=== PATIENT | female | born 1985 | race Caucasian/White ===

== ENCOUNTER 2016-02-29 04:04 | Inpatient (IN) | payer OTHER ==
[~2016-02-29] VITALS: Ht 170.2 cm; Wt 91.4 kg
[2016-02-29] MEDS ORDERED: PRENTAB26 PO (04:33)
[2016-02-29] MEDS ORDERED: LACTATED RINGER'S 1000ML 1,000 ML IV PRN (04:34)
[2016-02-29] MEDS ORDERED: LACTATED RINGER'S 1000ML 1,000 ML IV SCH (04:34)
[2016-02-29 04:35] VITALS: Ht 170.2 cm; Wt 91.4 kg
[2016-02-29 05:01] LABS: HEMATOCRIT 36.6 % (37-47); MEAN CELL VOLUME 82.8 fL (80-100); MEAN CORPUSCULAR HEMOGLOBIN 28.3 pg (25-34); MEAN CORPUSCULAR HGB CONC 34.2 g/dl (32-36); MEAN PLATELET VOLUME 9.1 fL (7.4-10.4); PLATELET COUNT 272 K/uL (130-400); RED BLOOD COUNT 4.42 M/uL (4.2-5.4); WHITE BLOOD COUNT 15.43 K/uL (4.8-10.8)
--- NOTE | 2016-02-29 07:00 | Medical Student: [facility] ---
Med Student History & Physical Date of Service Feb 29, 2016. Chief Complaint LABOR History of Present Illness Source: patient This is a 30 year old female with an JOANA of 02/26/16 who presents at 40 weeks and 3 days for a labor check. Upon last check, she was 4-5 cm dilated, 90 % effaced, and -2 station. She denies any vaginal leakage of fluid or blood and her water has not broken. She has been experiencing intermittent contractions becoming closer in frequency. She was seen in clinic yesterday where her NST was reactive. Strip shows a FHR of 125, moderate variability, accelerations present. No decelerations noted at this time. She reports good movement. This patient has had an uncomplicated course. She has been followed for a right breast lump which has shrunk since initial presentation. She has received her TDAP vaccine and flu vaccine. She has attended all visits and takes vitamins. Labs Blood type AB+ GBS negative. Rubella immune. VDRL nonreactive. HBsAg negative. HIV negative. Gonorrhea negative. Chlamydia negative. Declined Quad testing, genetic testing. Glucola negative x 2 OB History 2003- , 10 lbs, baby put up for adoption. 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 HPV negative. Past Medical History No significant past medical history. Denies history of HTN, diabetes, high cholesterol. Past Surgical History [place] teeth surgery. Family History FHx of SLE. Spouse healthy. 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 Lives at home with and dog. Smoking Status: Never Smoker Smokeless Tobacco Use: No Alcohol Use: none Drug Use: none Marital Status: Housing status: lives with significant other Occupational Status: employed Allergies Coded Allergies: No Known Allergies (Unverified , 02/29/16) Home Medications Multivit/Min/Iron/Fol Ac/Pren ( Vitamin), 1 TAB PO DAILY Physical Exam Vital Signs: BP 138/90 Pulse 116 Hgb 12.5 General Appearance: WD/WN, no apparent distress Head: normocephalic Eyes: normal inspection ENT: normal ENT inspection Neck: supple Respiratory/Chest: chest non-tender Cardiovascular: regular rate, rhythm Genitourinary - Female: external genitalia normal Back: normal inspection Extremities: normal inspection Skin: normal color At last exam per Dr. Nagel patient was 9.5 cm dilated, 100% effaced, 0 station. Monitoring External Monitor: Category 1 strip with FHR 125, moderate variability, accelerations present. No decelerations noted. Tocodynamometer: Contractions q2-3 minutes. Laboratory Results 02/29/16 04:50 Test 02/29/16 04:50 Red Blood Count 4.42 M/uL (4.2-5.4) Mean Corpuscular Volume 82.8 fL (80-100) Mean Corpuscular Hemoglobin 28.3 pg (25-34) Mean Corpuscular Hemoglobin Concent 34.2 g/dl (32-36) RDW Standard Deviation 40.6 fL (36.4-46.3) RDW Coefficient of Variation 13.5 % (11.5-14.5) Mean Platelet Volume 9.1 fL (7.4-10.4) Assessment and Plan This is a 30 y/o female who presents in active labor. Plan: Admit to L&D Normal routine care. Continue to monitor tocodynamics and FHR. Monitor BP.
[2016-02-29] MEDS ORDERED: OXYTOCIN 30 UNITS/500ML NSS IV ONE (07:25)
--- NOTE | 2016-02-29 08:56 | Medical Student: [facility] ---
Medical Student Delivery Note DELIVERY NOTE: (Med Student: Delivery Note) DELIVERY DATE: 02/29/16 PROCEDURE: Spontaneous vaginal delivery. SURGEON: Dr. Nagel ANESTHESIA: None ESTIMATED BLOOD LOSS: 150 cc DESCRIPTION: The patient is a 30 year-old JOANA of 02/26/16 who presented in labor at 0400 this morning, at which point she was admitted. Amniotomy occured at 0720. Upon examination she was 10 cm dilated, 100% effaced, and 0 station. At this point she began to push. She pushed for approximately 70 minutes to deliver a viable male . FHR remained category 1 for beginning and progressed to category 2 with variable decelerations near last thirty minutes. The patient was given oxygen at 0800. The head was delivered with one nuchal cord, which was reduced, and the rest of the delivered without difficulty and was placed on mother's abdomen for further attention and drying. There was vigorous crying after stimulation and the infant was moving all four limbs. The cord was doubly clamped and cut by father. Cord blood samples and cord gas obtained. The placenta was delivered spontaneously intact with a 3-vessel cord. Bleeding was controlled with fundal massage and dilute IV oxytocin. Inspection of the perineum showed no lacerations or abrasions requiring repair. The perineum, cervix and vagina were examined and were free of any lacerations requiring repair. Estimated blood loss was 150cc. Sponge and needle count was correct. Mother and infant doing well after delivery. Apgars were 8 and 10 respectively. This patient is blood type AB+ and does not require Rhogam. This patient was GBS -.
[2016-02-29] MEDS ORDERED: OXYTOCIN 30 UNITS/500ML NSS IV PRN (09:15)
[2016-02-29] MEDS ORDERED: BENZOCAINE 20% AER SPR 82.5 GM CAN EXT PRN (09:15)
[2016-02-29] MEDS ORDERED: ACETAMINOPHEN/CODEINE 300/30MG TAB PO PRN ×2 (09:15)
[2016-02-29] MEDS ORDERED: SUPERCREAM 0.870 % 15GM JAR EXT PRN (09:15)
[2016-02-29] MEDS ORDERED: HYDROCORTISONE ACETATE 25 MG SUPP PR PRN (09:15)
[2016-02-29] MEDS ORDERED: LANOLIN OINT EXT PRN ×2 (09:15)
--- NOTE | 2016-02-29 09:45 | DELIVERY SUMMARY ---
DATE OF OPERATION: 02/29/2016 DATE OF DELIVERY: 02/29/2016. DELIVERY SURGEON: Dr. Nagel. PRE-DELIVERY DIAGNOSES: 1. 30-year-old G2,P1-0-0-1 at 40 weeks 3 days. 2. Spontaneous labor. 3. Breast lump - resolved. POST-DELIVERY DIAGNOSES: Same. PROCEDURE: Spontaneous vaginal delivery. ANESTHESIA: None. ESTIMATED BLOOD LOSS: 300 mL. FINDINGS: Viable male with Apgars 8 and 9, weight pending. DESCRIPTION OF DELIVERY: The patient progressed to complete without anesthesia and spontaneously delivered a viable male vaginally over an intact perineum. The head delivered from the left occiput anterior position, nuchal cord was noted and easily reduced. The anterior shoulder was then delivered followed by the posterior shoulder followed by the body. The baby was warmed and dried and a spontaneous cry was heard. The baby was placed on the mother's abdomen. Delayed cord clamping was performed. The cord was then doubly clamped and cut. A segment was retained for cord gases. Cord blood was obtained. The placenta was then delivered spontaneously intact with a 3-vessel cord. The uterus and vagina were cleared of all clots and debris. The vagina and perineum were inspected and no lacerations were noted. The uterus became firm with administration of Pitocin. Mother and baby tolerated the delivery well and recovered in the room. Sponge and instrument counts were correct at the conclusion of the delivery. HISTORY OF PRESENT ILLNESS: The patient is a 30-year-old G2-P1-0-0-1 who presented with regular contractions at 40 weeks 3 days with positive movement. No vaginal bleeding, no gush of fluid. Review of systems otherwise unremarkable. PAST MEDICAL HISTORY: Negative except history of right breast lump has now resolved. PAST SURGICAL HISTORY: [place] teeth. PAST OBSTETRICAL HISTORY: Vaginal delivery of a female in 2003 weighing 10 pounds with use of an epidural. That child was given up for adoption. SOCIAL HISTORY: Denies tobacco, alcohol and drug use. Lives with spouse and her dog. FAMILY HISTORY: Unremarkable. MEDICATIONS: vitamins. ALLERGIES: No known drug allergies. PHYSICAL EXAMINATION: VITAL SIGNS: Stable and afebrile. GENERAL: Awake, alert and oriented x3 in no acute distress. CARDIOVASCULAR EXAMINATION: Regular rate and rhythm, S1, S2. No murmurs, gallops or rubs. LUNGS: Clear to auscultation bilaterally. ABDOMEN: Soft, nontender to palpation, gravid. No signs or symptoms of chorioamnionitis or placental abruption. EXTREMITIES: No edema, no calf tenderness. VAGINAL EXAMINATION ON ADMISSION: 4-5 cm per RN and progressed to complete throughout stay in labor and delivery. heart tracing category 1 with regular contractions every 2 minutes. LABS: Blood type AB positive, rubella immune, GBS negative. ASSESSMENT AND PLAN: 1. 30-year-old G2,P1-0-0-1 at 40 weeks 3 days. 2. Spontaneous labor. PLAN: Admit to labor and delivery and anticipate vaginal delivery. I attest to the content of the Intraoperative Record and any orders documented therein. Any exceptions are noted below. RICCID
[2016-02-29 11:45] VITALS: BP 107/71; PULSE 88; TEMP 36.6
[2016-02-29 16:05] VITALS: BP 120/79; PULSE 68; TEMP 36.5
[2016-02-29] MEDS: IBUPROFEN 600 MG TAB PO PRN (18:34)
[2016-02-29] MEDS: DOCUSATE SODIUM 100 MG CAP PO SCH (19:57)
[2016-02-29 20:50] VITALS: BP 119/76; PULSE 74; TEMP 36.6
[2016-02-29 23:30] VITALS: BP 109/67; PULSE 61; TEMP 36.6
[2016-03-01 03:30] VITALS: BP 125/77; PULSE 67; TEMP 36.3
--- NOTE | 2016-03-01 06:40 | Progress Note ---
Subjective Mar 01, 2016. Subjective conversation w/ patient, physical exam Ambulation: ambulating normally Voiding: no voiding problems Passing Gas: No Diet Tolerance: Regular Diet Lochia: Small Feeding Type: Breast Feeding Pain: No pain reported this morning Review of Systems Constitutional: No chills, No fever Respiratory: No cough, No shortness of breath Cardiac: No chest pain Breast: No breast pain Abdomen: No nausea, No pain, No vomiting Female : No dysuria Objective Vital Signs Date Time Temp Pulse Resp B/P Pulse Ox O2 Delivery O2 Flow Rate FiO2 03/01/16 03:30 36.3 67 19 125/77 Room Air 02/29/16 23:30 36.6 61 20 109/67 Room Air 02/29/16 23:30 Room Air 02/29/16 20:50 36.6 74 20 119/76 Room Air 02/29/16 16:05 Room Air 02/29/16 16:05 36.5 68 22 120/79 Room Air 02/29/16 11:45 36.6 88 20 107/71 Physical Exam General Appearance: WELL-APPEARING, WD/WN, NO APPARENT DISTRESS Respiratory/Chest: lungs clear, normal breath sounds Cardiovascular: regular rate, rhythm, no gallop, no murmur Abdomen: normal bowel sounds, non tender, soft Fundus: Relation to Umbilicus (At umbilicus) Extremities: no calf tenderness Laboratory Results Last 24 Hours Test 03/01/16 04:44 Medications Current Inpatient Medications Medications (Trade) Dose Ordered Sig/Meryl Route Start Time Stop Time Status Last Admin Dose Admin Lactated Ringer's 1,000 ml @ 125 mls/hr Q8H IV 02/29/16 04:34 03/02/16 04:33 02/29/16 09:33 125 MLS/HR Lactated Ringer's (Lr 1000ml) 1,000 ml @ 999 mls/hr Q1H1M PRN IV 02/29/16 04:34 03/30/16 04:33 Oxytocin (Pitocin IV) 30 units UD PRN IV 02/29/16 09:15 03/30/16 09:14 Benzocaine (Dermoplast Aero Spr) 1 appln PRN PRN EXT 02/29/16 09:15 03/30/16 09:14 Cocaine HCl (Supercream 0.870% Cr) BID PRN EXT 02/29/16 09:15 03/14/16 09:14 Hydrocortisone Acetate (Anusol Hc Supp) 25 mg BID PRN [place] 02/29/16 09:15 03/30/16 09:14 Lanolin (Lanolin Oint) PRN PRN EXT 02/29/16 09:15 03/30/16 09:14 Ibuprofen (Motrin Tab) 600 mg Q4H PRN PO 02/29/16 09:15 03/30/16 09:14 02/29/16 18:34 600 MG Acetaminophen/ Codeine Phosphate (Tylenol w/ Codeine #3 Tab) 1 tab Q4H PRN PO 02/29/16 09:15 03/30/16 09:14 Acetaminophen/ Codeine Phosphate (Tylenol w/ Codeine #3 Tab) 2 tab Q4H PRN PO 02/29/16 09:15 03/30/16 09:14 Bisacodyl (Dulcolax Tab) 5 mg 20 PO 03/01/16 20:00 03/01/16 20:01 Docusate Sodium (coLACE CAP) 100 mg BID PO 02/29/16 20:00 03/30/16 19:59 02/29/16 19:57 100 MG Assessment and Plan Post- Day#: 1 Continue Routine Care: - Vital Signs reviewed and WNL (temp max 36.3) - Blood Type: AB+, GBS- , Rubella Immune - Patient doing well clinically - Encourage Ambulation today - Pain well controlled with Motrin - Tolerating PO diet Resident Physician Supervision Note: I interviewed and examined the patient. Discussed with Dr. Brewster and agree with findings and plan as documented in the note. Any exceptions or clarifications are listed here: [None] Documented By: Pelon Wilburn
--- NOTE | 2016-03-01 06:43 | Discharge Instructions ---
Discharge Instructions Admission Reason for Admission: LABOR Discharge Discharge Diagnosis / Problem: Vaginal Delivery Discharge Goals Goal(s): Routine recovery after delivery Medications Continue Dispensed Medications: supercream, dermaplast, tucks, lansinoh Activity Recommendations Activity Limitations: per Instructions/Follow-up section . Instructions / Follow-Up Instructions / Follow-Up ACTIVITY RECOMMENDATIONS: * Gradual return to full activity over the next 2-3 weeks. * No lifting - nothing heavier than baby over the next 2-3 weeks. * Do not engage in vigorous exercise, sexual activity or sports until cleared by your physician. * Do not drive or operate any motorized equipment until cleared by your physician. * You may shower/bathe daily. MEDICATIONS: For discomfort or pain, you may use Acetaminophen (Tylenol), Ibuprofen (Advil), or Naproxen (Aleve) following the package directions. For constipation you may use Colace following the package directions. BREAST CARE: If you are not breast feeding: * Wear a supportive bra 24 hours a day for one to two weeks. * Avoid stimulating your breasts and nipples as much as possible during the first few weeks after delivery. * When taking a shower, have the warm water hit your back, not breasts. * When your breasts feel full, apply ice packs. Usually three to four times a day helps ease the discomfort. * Take a mild pain medication (Tylenol / Motrin) when you are uncomfortable. If breast feeding: * Use breast milk to lubricate nipples. Lansinoh cream may be used for sore nipples. You do not need to remove cream prior to breast feeding. If using a different brand of cream, check the label for directions regarding removal of cream prior to nursing. * Wear a supportive bra. * If having problems with breasts or breast feeding, call a sap basis consultant or your health care provider. EPISIOTOMY CARE: After delivery, if you have an episiotomy (stitches), the following steps will ease discomfort and aid healing. * For the first 24 hours after delivery, place ice packs next to your episiotomy to help reduce swelling. * After the first 24 hour-period, sitz baths, either portable or in the tub, are suggested. A shower with a shower arm sprayed over the episiotomy may be comforting. * Paula care should be done after each voiding and bowel movement. Squirt warm water from a plastic bottle over the perineum (region of the body between the anus and urinary opening) and pat dry. * Use Dermoplast to ease discomfort. Shake container. Louann directly over the episiotomy. Place a Tucks on a clean sanitary pad next to your episiotomy. SPECIAL CARE INSTRUCTIONS: When you are discharged from the hospital, it is important for you to follow the instructions listed below: * During the first week at home, you should be able to care for yourself and your baby. In addition, the usual light household activities are encouraged. * Limit your activities to the way you feel. Do not try to clean the house or move furniture. Be sensible. * If you actively engage in sports and have done so up until the time of your delivery, you may resume these activities as soon as you feel able. This may take up to one month or even longer. Use good judgment. * Continue to take your vitamins for at least six weeks after the of your baby. * Your diet need not be limited unless you were on a special diet before your delivery. Breast-feeding mothers need around 2500 calories per day and at least 64-80 ounces of fluid per day (8 to 10 glasses). * You should eat foods from the four major food groups. Crash diets or fad diets are to be avoided. Eating lean meats, fresh fruits and vegetables, low-fat dairy products, high fiber foods and a regular exercise program, will help you get back to your pre- weight without putting your health at risk. * Constipation is sometimes a problem after delivery. Take a mild laxative as needed. If breast feeding, Milk of Magnesia is acceptable to use. You may use a suppository or Fleets enema if no episiotomy. * A daily shower or tub bath is suggested. Be sure to thoroughly and gently dry the perineum. * A bloody vaginal discharge will usually continue until around four weeks post . A small amount of bleeding may continue for as long as six weeks. Vaginal discharge changes from the bright red bleeding after delivery to pink then brownish and finally yellowish-pink before becoming white and disappearing. * Bleeding may increase with activity. Your first period may come in 4-8 weeks. If you are breast feeding, your period may be delayed even longer. * [place] (sex) can begin whenever both you and your partner feel comfortable and do not have any form of genital infection. It is recommended that you wait at least six weeks for internal and external healing to occur. If you have questions, please talk to your health care practitioner. A condom should be used to prevent infection and . * Foreplay, gentle intercourse and lubrication is very important the first several times to prevent pain. A water-based lubricant such as K-Y jelly or Astroglide may be used. * If you have RH negative blood and your baby is RH positive, you will receive RHOGAM by injection prior to discharge. The nurse will give you a card to keep with you that has the date and place that you received RHOGAM after delivery. * During your care, you had a Rubella screen done to check for the presence of rubella antibodies in your blood. If your test was negative, you will receive a Rubella vaccine prior to discharge. This vaccine may cause a fever, soreness at the injection site and flu-like symptoms. If these symptoms persist, notify your health care practitioner. is not advised for one month after a Rubella vaccine. * Verbalizes understanding of car seat law as reviewed with patient nursing. * Car Seat hand-out given and reviewed with patient by nursing. * Shaken baby information reviewed with patient by nursing. Call you doctor if: * Heavy bleeding (saturating several pads an hour) or passing clots the size of your fist. * A fever >101 degrees F (38.3 degrees C) on two occasions four hours apart and /or chills. * Unusual pain in the pelvic or vaginal areas. * "Baby Blues" lasting longer than two weeks. If you have any questions or concerns, call your health care practitioner at . FOLLOW UP VISIT: * Please call the office at to schedule a 6 week examination. It is important you keep this appointment. It is important for you to make arrangements for either yearly or twice yearly check-ups thereafter. Current Hospital Diet Patient's current hospital diet: Regular OB Diet Discharge Diet Recommended Diet: Regular Diet Pending Studies Studies pending at discharge: no Medical Emergencies . Who to Call and When: Medical Emergencies: If at any time you feel your situation is an emergency, please call 911 immediately. . Non-Emergent Contact Non-Emergency issues call your: [employer] Terminal Operator . . "Provider Documentation" section prepared by Manny Brewster. VTE Core Measure Inpt VTE Proph given/why not?: Treatment not indicated
[2016-03-01 07:07] LABS: HEMATOCRIT 33.1 % (37-47)
[2016-03-01 08:00] VITALS: BP 121/74; PULSE 73; TEMP 36.4
[2016-03-01] MEDS: DOCUSATE SODIUM 100 MG CAP PO SCH ×2 (08:12→20:25)
[2016-03-01 16:30] VITALS: BP 133/83; PULSE 73; TEMP 36.5
[2016-03-01] MEDS: IBUPROFEN 600 MG TAB PO PRN ×2 (16:34→20:26)
[2016-03-01] MEDS ORDERED: BISACODYL 5 MG TABEC PO SCH (20:00)
[2016-03-01 23:25] VITALS: BP 132/75; PULSE 64; TEMP 36.5
--- NOTE | 2016-03-02 06:24 | Progress Note ---
Subjective Mar 02, 2016. Subjective conversation w/ patient, physical exam Ambulation: ambulating normally Voiding: no voiding problems Passing Gas: Yes Diet Tolerance: Regular Diet Lochia: Small Feeding Type: Breast Feeding Pain: No pain reported this morning Review of Systems Constitutional: No chills, No fever Respiratory: No cough, No shortness of breath Cardiac: No chest pain Breast: No breast pain Abdomen: No nausea, No pain, No vomiting Female : No dysuria Objective Vital Signs Date Time Temp Pulse Resp B/P Pulse Ox O2 Delivery O2 Flow Rate FiO2 03/01/16 23:25 Room Air 03/01/16 23:25 36.5 64 16 132/75 Room Air 03/01/16 16:30 Room Air 03/01/16 16:30 36.5 73 20 133/83 Room Air 03/01/16 08:00 Room Air 03/01/16 08:00 36.4 73 16 121/74 Room Air Physical Exam General Appearance: WELL-APPEARING, WD/WN, NO APPARENT DISTRESS Respiratory/Chest: lungs clear, normal breath sounds Cardiovascular: regular rate, rhythm, no gallop, no murmur Abdomen: normal bowel sounds, non tender, soft Fundus: Firm, Relation to Umbilicus (At Umbilicus) Extremities: no calf tenderness Laboratory Results Last 24 Hours Test 03/01/16 06:41 Hemoglobin 11.4 g/dL Hematocrit 33.1 % Medications Current Inpatient Medications Medications (Trade) Dose Ordered Sig/Meryl Route Start Time Stop Time Status Last Admin Dose Admin Lactated Ringer's (Lr 1000ml) 1,000 ml @ 999 mls/hr Q1H1M PRN IV 02/29/16 04:34 03/30/16 04:33 Oxytocin (Pitocin IV) 30 units UD PRN IV 02/29/16 09:15 03/30/16 09:14 Benzocaine (Dermoplast Aero Spr) 1 appln PRN PRN EXT 02/29/16 09:15 03/30/16 09:14 Cocaine HCl (Supercream 0.870% Cr) BID PRN EXT 02/29/16 09:15 03/14/16 09:14 Hydrocortisone Acetate (Anusol Hc Supp) 25 mg BID PRN [place] 02/29/16 09:15 03/30/16 09:14 Lanolin (Lanolin Oint) PRN PRN EXT 02/29/16 09:15 03/30/16 09:14 Ibuprofen (Motrin Tab) 600 mg Q4H PRN PO 02/29/16 09:15 03/30/16 09:14 03/01/16 20:26 600 MG Acetaminophen/ Codeine Phosphate (Tylenol w/ Codeine #3 Tab) 1 tab Q4H PRN PO 02/29/16 09:15 03/30/16 09:14 Acetaminophen/ Codeine Phosphate (Tylenol w/ Codeine #3 Tab) 2 tab Q4H PRN PO 02/29/16 09:15 03/30/16 09:14 Docusate Sodium (coLACE CAP) 100 mg BID PO 02/29/16 20:00 03/30/16 19:59 03/01/16 20:25 100 MG Assessment and Plan Post- Day#: 2 Continue Routine Care: Resident Physician Supervision Note: I interviewed and examined the patient. Discussed with Dr. Brewster and agree with findings and plan as documented in the note. Any exceptions or clarifications are listed here: [None] Documented By: Gabby Gamez - Vital Signs reviewed and WNL (temp max 36.5) - Blood Type: AB+, GBS- , Rubella Immune - Patient doing well clinically - Encourage Ambulation today - Pain well controlled with Motrin - Tolerating PO diet - Discharge today after circumcision of child
[2016-03-02 07:30] VITALS: BP 122/84; PULSE 76; TEMP 36.4
[2016-03-02] MEDS: IBUPROFEN 600 MG TAB PO PRN (07:44)
[2016-03-02] MEDS: DOCUSATE SODIUM 100 MG CAP PO SCH (07:44)
[2016-03-02 12:21] VITALS: BP_DIAS 84; PULSE 76; TEMP 36.4
== END 2016-03-02 12:30 | disposition home or self-care (01) | DRG 775 ==
LOC: C.LD 04:04 → C.OPB 04:04 → C.LD 04:35 → C.OPB 04:35 → C.OBG 11:09
PROVIDERS: ADMIT Obstetrics & Gynecology; ATTEND Obstetrics & Gynecology
PROC: 10E0XZZ Delivery of Products of Conception, External Approach (ICD-10-PCS; principal; 2016-02-29)
DX: O69.81X0 Labor and delivery complicated by cord around neck, without compression, not applicable or unspecified (principal); Z37.0 Single live birth; Z3A.40 40 weeks gestation of pregnancy

== ENCOUNTER → 2016-04-16 | Outpatient (CLI) | payer OTHER ==
[~2016-04-16] MED LIST: BCPILLS PO; PRENTAB26 PO
== END | disposition home or self-care (01) ==
LOC: C.PAPS 13:51
PROVIDERS: ATTEND Obstetrics & Gynecology
DX: Z12.4 Encounter for screening for malignant neoplasm of cervix (principal)

== ENCOUNTER 2016-08-07 19:50 | Emergency (ER) | payer OTHER ==
[~2016-08-07] VITALS: Ht 170.2 cm; Wt 73.1 kg
[~2016-08-07 19:50] MED LIST changes: -BCPILLS PO
[2016-08-07 19:51] VITALS: TEMP 36.7; Ht 170.2 cm; Wt 73.1 kg
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
[2016-08-07] MEDS ORDERED: BCPILLS PO (21:49)
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
[2016-08-07 22:00] VITALS: BP 117/79; PULSE 69; O2SAT 99
== END 2016-08-07 22:01 | disposition home or self-care (01) ==
LOC: C.EDB 19:51 → C.EDD 22:01
DX: M54.2 Cervicalgia (principal); V43.52XA Car driver injured in collision with other type car in traffic accident, initial encounter; Z83.3 Family history of diabetes mellitus; Z82.49 Family history of ischemic heart disease and other diseases of the circulatory system; Z80.9 Family history of malignant neoplasm, unspecified

== ENCOUNTER → 2017-05-02 | Outpatient (CLI) | payer BC ==
[~2017-05-02] MED LIST changes: +BCPILLS PO
== END | disposition home or self-care (01) ==
LOC: C.LAB1850 13:19
PROVIDERS: ATTEND Obstetrics & Gynecology
DX: Z34.90 Encounter for supervision of normal pregnancy, unspecified, unspecified trimester (principal); Z3A.00 Weeks of gestation of pregnancy not specified

== ENCOUNTER → 2017-06-06 | Outpatient (CLI) | payer BC | END | disposition home or self-care (01) | LOC: C.LABSPEC 11:10 | PROVIDERS: ATTEND Obstetrics & Gynecology | DX: Z34.81 Encounter for supervision of other normal pregnancy, first trimester (principal); Z3A.00 Weeks of gestation of pregnancy not specified ==

== ENCOUNTER → 2017-06-12 | Outpatient (CLI) | payer BC ==
[2017-06-12 10:04] LABS: BASO % 0.5 %; BASO ABS # 0.04 K/uL (0-0.2); EOS % 1.7 %; EOS ABS # 0.15 K/uL (0-0.5); HEMATOCRIT 39.1 % (37-47); HEMOGLOBIN 13.7 g/dL (12.0-16.0); IG# 0.01 K/uL (0.00-0.02); LYMPH % 31.1 %; LYMPH ABS # 2.71 K/uL (1.2-3.4); MEAN CELL VOLUME 82.7 fL (80-100); MEAN PLATELET VOLUME 8.2 fL (7.4-10.4); MONO % 5.3 %; MONO ABS # 0.46 K/uL (0.11-0.59); NEUT % 61.3 %; NEUT ABS # 5.35 K/uL (1.4-6.5); PLATELET COUNT 312 K/uL (130-400); RED CELL DISTRIBUTION WIDTH CV 12.5 % (11.5-14.5); RED CELL DISTRIBUTION WIDTH SD 37.7 fL (36.4-46.3); WHITE BLOOD COUNT 8.72 K/uL (4.8-10.8)
== END | disposition home or self-care (01) ==
LOC: C.LAB1850 09:16
PROVIDERS: ATTEND Obstetrics & Gynecology
DX: Z34.90 Encounter for supervision of normal pregnancy, unspecified, unspecified trimester (principal)

== ENCOUNTER 2017-07-06 14:01 | Emergency (ER) | payer BC ==
[~2017-07-06] VITALS: Ht 170.2 cm; Wt 76.6 kg
[2017-07-06 14:05] VITALS: TEMP 36.7
--- NOTE | 2017-07-06 14:23 | EMERGENCY ROOM VISIT NOTE ---
History Report prepared by Tom: Kashif Guadarrama Under the Supervision of: Dr. Aayush Pruett M.D. First contact with patient: 14:04 Chief Complaint: VAGINAL BLEEDING Stated Complaint: 13 WKS , BLEEDING History of Present Illness The patient is a 32 year old female who presents to the Emergency Room with complaints of persistent vaginal bleeding that occurred prior to arrival. The patient states she is 13 weeks , which was confirmed with an ultrasound. She reports this is her third time . The patient states her other two children are alive without any medical complications. The patient states that she was out to lunch today when she started to vaginally bleed. She reports that she used a pad to try to stop the bleeding but states she bled through the pad. The patient states this is the second time this happened since the start of the . She reports that the first time she bled, she did not bleed through a pad. The patient states she called her JEWELRY ENAMELER at that time who told her to not to come to the ER since she did not bleed through a pad. She reports that this episode of vaginal bleeding lasted for two days then suddenly resolved. The patient reports that she called JEWELRY ENAMELER during this episode who told her to come to the ER due to the amount of bleeding. The patient denies any abdominal pain or pelvic pain. 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 Review of Systems See HPI for pertinent positives & negatives. A total of 10 systems reviewed and were otherwise negative. Past Medical & Surgical Medical Problems: (1) Spontaneous onset of labor Family History Cancer Diabetes mellitus Heart disease Hypertension Social History Smoking Status: Never Smoker Drug Use: none Marital Status: Housing Status: lives with family Occupation Status: employed Current/Historical Medications Scheduled Multivit/Min/Iron/Fol Ac/Pren ( Vitamin), 1 TAB PO DAILY Allergies Coded Allergies: No Known Allergies (Unverified , 07/06/17) Physical Exam Vital Signs Date Time Temp Pulse Resp B/P (MAP) Pulse Ox O2 Delivery O2 Flow Rate FiO2 07/06/17 17:00 67 16 109/67 99 07/06/17 14:05 36.7 77 18 112/73 99 Room Air Physical Exam GENERAL: Awake, alert, well-appearing, in no acute distress HENT: Normocephalic, atraumatic. Oropharynx unremarkable. EYES: Normal conjunctiva. Sclera non-icteric. NECK: Supple. No nuchal rigidity. FROM. No JVD. RESPIRATORY: Clear to auscultation. CARDIAC: Regular rate, normal rhythm. Extremities warm and well perfused. Pulses equal. ABDOMEN: Gravid abdomen. No tenderness to palpation. No rebound or guarding. No masses. RECTAL: Deferred. MUSCULOSKELETAL: Chest examination reveals no tenderness. The back is symmetrical on inspection without obvious abnormality. There is no CVA tenderness to palpation. No joint edema. LOWER EXTREMITIES: Calves are equal size bilaterally and non-tender. No edema. No discoloration. NEURO: Normal sensorium. No sensory or motor deficits noted. SKIN: No rash or jaundice noted. Medical Decision & Procedures ER Provider Diagnostic Interpretation: Radiology results as stated below per my review and radiologist interpretation: ULTRASOUND <14 WKS SINGLE CLINICAL HISTORY: Pt 13 weeks . Vaginal bleeding. COMPARISON STUDY: None. FINDINGS: There is a single viable intrauterine gestation with a heart rate of 143 bpm. The fetus measures a crown-rump length of 7.97 cm consistent with a 14 week and 0 day gestation. There is a posterior fundal placenta. Along the lower posterior edge of the placenta there is a heterogeneous fluid collection which extends along the anterior wall of the gestational sac. This measures 7.9 x 6.2 x 2.3 cm. This results in mild mass effect and is consistent with a moderate-sized subchorionic hematoma. anatomical survey was not performed. IMPRESSION: 1. Moderate-sized subchorionic hematoma as described above. 2. Single viable 14 week and 0 day intrauterine gestation with a heart rate of 143 bpm. Electronically signed by: London Kline M.D. 07/06/2017 3:43 PM Dictated Date/Time: 07/06/2017 3:41 PM Laboratory Results 07/06/17 14:30 Red Blood Count 4.35, Mean Corpuscular Volume 81.8, Mean Corpuscular Hemoglobin 28.5, Mean Corpuscular Hemoglobin Concent 34.8, Mean Platelet Volume 8.1, Neutrophils (%) (Auto) 73.8, Lymphocytes (%) (Auto) 20.1, Monocytes (%) (Auto) 4.6, Eosinophils (%) (Auto) 0.9, Basophils (%) (Auto) 0.2, Neutrophils # (Auto) 8.63, Lymphocytes # (Auto) 2.35, Monocytes # (Auto) 0.54, Eosinophils # (Auto) 0.11, Basophils # (Auto) 0.02 07/06/17 14:30 Test 07/06/17 14:30 White Blood Count 11.70 K/uL (4.8-10.8) Red Blood Count 4.35 M/uL (4.2-5.4) Hemoglobin 12.4 g/dL (12.0-16.0) Hematocrit 35.6 % (37-47) Mean Corpuscular Volume 81.8 fL (80-100) Mean Corpuscular Hemoglobin 28.5 pg (25-34) Mean Corpuscular Hemoglobin Concent 34.8 g/dl (32-36) Platelet Count 269 K/uL (130-400) Mean Platelet Volume 8.1 fL (7.4-10.4) Neutrophils (%) (Auto) 73.8 % Lymphocytes (%) (Auto) 20.1 % Monocytes (%) (Auto) 4.6 % Eosinophils (%) (Auto) 0.9 % Basophils (%) (Auto) 0.2 % Neutrophils # (Auto) 8.63 K/uL (1.4-6.5) Lymphocytes # (Auto) 2.35 K/uL (1.2-3.4) Monocytes # (Auto) 0.54 K/uL (0.11-0.59) Eosinophils # (Auto) 0.11 K/uL (0-0.5) Basophils # (Auto) 0.02 K/uL (0-0.2) RDW Standard Deviation 38.2 fL (36.4-46.3) RDW Coefficient of Variation 12.8 % (11.5-14.5) Immature Granulocyte % (Auto) 0.4 % Immature Granulocyte # (Auto) 0.05 K/uL (0.00-0.02) Prothrombin Time 10.0 SECONDS (9.0-12.0) Prothromb Time International Ratio 1.0 (0.9-1.1) Activated Partial Thromboplast Time 25.9 SECONDS (21.0-31.0) Partial Thromboplastin Ratio 1.0 Anion Gap 8.0 mmol/L (3-11) Est Creatinine Clear Calc Drug Dose 198.6 ml/min Estimated GFR () > 150.0 Estimated GFR (Non- 133.6 BUN/Creatinine Ratio 15.0 (10-20) Calcium Level 8.5 mg/dl (8.5-10.1) Total Bilirubin 0.3 mg/dl (0.2-1) Aspartate Amino Transf (AST/SGOT) 15 U/L (15-37) Alanine Aminotransferase (ALT/SGPT) 13 U/L (12-78) Alkaline Phosphatase 51 U/L (45-117) Total Protein 7.1 gm/dl (6.4-8.2) Albumin 3.1 gm/dl (3.4-5.0) Globulin 4.0 gm/dl (2.5-4.0) Albumin/Globulin Ratio 0.8 (0.9-2) Human Chorionic Gonadotropin, Quant 00186 mIU/mL Labs reviewed by ED physician. ED Course 1415: Past medical records reviewed. The patient was evaluated in room B04B. A complete history and physical examination was performed. 1550: I discussed the patient's case with Dr. Donahue, [facility] JEWELRY ENAMELER. She understands the patient's condition and agrees to further evaluate the patient. 1552: I reevaluated the patient and updated her on her results. I informed her that Dr. Donahue will evaluate her. 1657: I reevaluated the patient and discussed her treatment plan. The patient understands and is ready for discharge. Medical Decision Prior records/ancillary studies reviewed. Triage Nursing notes reviewed. The patient's history was concerning for vaginal bleeding. Differential diagnosis: Etiologies such as ectopic , dysfunction uterine bleeding, bleeding dyscrasia, trauma, infection, as well as others were entertained. This is a 32-year-old female who presents the emergency department acute vaginal bleed. The patient is 13 weeks she has had a confirmatory ultrasound in the uterus. Based on the patient's presentation I recommended that we obtained laboratory work including a type and screen hemoglobin and ultrasound. The patient consented to that testing. Her hemoglobin is slightly low however I do not feel that the patient is any danger of bleeding out. She is normotensive. She was sent for a pelvic ultrasound which was concerning for a large subchorionic hematoma. Because of how large it was I did discuss the case with the internal medicine physician office receptionist who was kind enough to come in and see the patient and perform an exam. Using shared medical decision making with the patient, we are going to send the patient home for close follow-up with OB on . If the patient develops heavy bleeding, dizziness or weakness she is going to return. The patient does not require RhoGam as she is positive. I was sure to express the gravity of the situation to the patient and her that I am not sure that this is viable. Medication Reconcilliation Current Medication List: was personally reviewed by me Blood Pressure Screening Patient's blood pressure: Normal blood pressure Consults Time Called: 1532 Consulting Physician: Dr. Donahue, [facility] JEWELRY ENAMELER Returned Call: 1550 I discussed the patient's case with Dr. Donahue, [facility] JEWELRY ENAMELER. She understands the patient's condition and agrees to further evaluate the patient. Impression Primary Impression: Vaginal bleeding affecting early Scribe Attestation The scribe's documentation has been prepared under my direction and personally reviewed by me in its entirety. I confirm that the note above accurately reflects all work, treatment, procedures, and medical decision making performed by me. Departure Information Dispostion Home / Self-Care Referrals No Doctor, Assigned (PCP) Tiffanie Donahue M.D. Forms HOME CARE DOCUMENTATION FORM, IMPORTANT VISIT INFORMATION, WORK / SCHOOL INSTRUCTIONS Patient Instructions ED Miscarriage Poss, My [facility] Additional Instructions Follow up with Dr Donahue's office on Pelvic Rest NO strenuous activity You have been examined and treated today on an emergency basis only. This is not a substitute for, or an effort to provide, complete comprehensive medical care. It is impossible to recognize and treat all injuries or illnesses in a single emergency department visit. It is therefore important that you follow up closely with your PCP. Call as soon as possible for an appointment. Thank you for your time and consideration. I look forward to speaking with you again soon. Please don't hesitate to call us if you have any questions.
[2017-07-06 14:47] LABS: BASO % 0.2 %; BASO ABS # 0.02 K/uL (0-0.2); EOS % 0.9 %; EOS ABS # 0.11 K/uL (0-0.5); HEMATOCRIT 35.6 % (37-47); HEMOGLOBIN 12.4 g/dL (12.0-16.0); IG# 0.05 K/uL (0.00-0.02); LYMPH % 20.1 %; LYMPH ABS # 2.35 K/uL (1.2-3.4); MEAN CELL VOLUME 81.8 fL (80-100); MEAN CORPUSCULAR HEMOGLOBIN 28.5 pg (25-34); MEAN CORPUSCULAR HGB CONC 34.8 g/dl (32-36); MEAN PLATELET VOLUME 8.1 fL (7.4-10.4); MONO % 4.6 %; MONO ABS # 0.54 K/uL (0.11-0.59); NEUT % 73.8 %; NEUT ABS # 8.63 K/uL (1.4-6.5); PLATELET COUNT 269 K/uL (130-400); RED CELL DISTRIBUTION WIDTH CV 12.8 % (11.5-14.5); RED CELL DISTRIBUTION WIDTH SD 38.2 fL (36.4-46.3)
[2017-07-06 14:54] LABS: PTT PATIENT 25.9 SECONDS (21.0-31.0)
[2017-07-06 15:07] VITALS: Ht 170.2 cm; Wt 76.6 kg
[2017-07-06 15:21] LABS: ALBUMIN 3.1 gm/dl (3.4-5.0); ALT/SGPT 13 U/L (12-78); AST/SGOT 15 U/L (15-37); BLOOD UREA NITROGEN 7 mg/dl (7-18); CALCIUM 8.5 mg/dl (8.5-10.1); CARBON DIOXIDE 25 mmol/L (21-32); CREATININE 0.43 mg/dl (0.60-1.20); GLUCOSE 79 mg/dl (70-99); POTASSIUM 3.6 mmol/L (3.5-5.1); SODIUM 138 mmol/L (136-145)
[2017-07-06 15:24] LABS: ALKALINE PHOSPHATASE 51 U/L (45-117); TOTAL PROTEIN 7.1 gm/dl (6.4-8.2)
--- NOTE | 2017-07-06 15:44 | DIAGNOSTIC IMAGING REPORT ---
ULTRASOUND <14 WKS SINGLE CLINICAL HISTORY: Pt 13 weeks . Vaginal bleeding. COMPARISON STUDY: None. FINDINGS: There is a single viable intrauterine gestation with a heart rate of 143 bpm. The fetus measures a crown-rump length of 7.97 cm consistent with a 14 week and 0 day gestation. There is a posterior fundal placenta. Along the lower posterior edge of the placenta there is a heterogeneous fluid collection which extends along the anterior wall of the gestational sac. This measures 7.9 x 6.2 x 2.3 cm. This results in mild mass effect and is consistent with a moderate-sized subchorionic hematoma. anatomical survey was not performed. IMPRESSION: 1. Moderate-sized subchorionic hematoma as described above. 2. Single viable 14 week and 0 day intrauterine gestation with a heart rate of 143 bpm. Electronically signed by: London Kline M.D. 07/06/2017 3:43 PM Dictated Date/Time: 07/06/2017 3:41 PM
[2017-07-06 17:00] VITALS: BP 109/67; PULSE 67; O2SAT 99
--- NOTE | 2017-07-06 22:14 | GYNECOLOGICAL CONSULTATION ---
DATE OF CONSULTATION: 07/06/2017 This is an ED consult. CHIEF COMPLAINT: Vaginal bleeding in . HISTORY OF PRESENT ILLNESS: Melanie is a 3, para 2-0-0-2, with an EDC of 01/04/2018 making her 14 weeks . She called me on the telephone noting a large gush of blood filling a pad. She notes no cramping or discomfort. She notes that she has had some bleeding in this early but it was less and for 1 day and has had none further. She presented to the Emergency Department where an ultrasound was performed. This showed a single viable intrauterine gestation with a heart rate of 143 beats per minute, measuring 14 and 0/7 weeks by crown rump length. The placenta is posterior and fundal and along the lower plus posterior edge of the placental there is heterogeneous fluid collection which extends along the anterior wall of the gestational sac. This measures 7.9 x 6.2 x 2.3 cm and results in a mild mass effect consistent with a moderate sized subchorionic hematoma. This has otherwise been uncomplicated for the patient. 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 There were no complications with this. FAMILY AND MARRIAGE COUNSELLOR history noncontributory. ALLERGIES: None. MEDICATIONS: vitamins. PAST MEDICAL HISTORY: She is healthy. Denies thyroid disease, asthma, heart disease, heart murmur, diabetes, kidney or liver problems. She has had chickenpox. PAST SURGICAL HISTORY: Includes oral surgery. SOCIAL HISTORY: The patient denies tobacco, alcohol or drug use. She lives with her , Ag and her son. PHYSICAL EXAMINATION: GENERAL: This is a well-developed, well-nourished white female on the Emergency Department bed. VITAL SIGNS: Temperature 36.7, pulse 77, blood pressure 112/73, respiratory rate is 18. NECK: Supple without thyromegaly, no lymphadenopathy. ABDOMEN: Soft, nontender, nondistended. PELVIC: There is normal external female genitalia. There is some blood on the external genitalia and inner thighs. On speculum exam, the cervix is visualized, appears closed and long. There is a small amount of dark brownish brick red blood in the posterior vault. There is no active bleeding from the cervix. There are no clots noted within the vagina. On bimanual exam, a gentle cervical exam is performed. The cervix is closed; I cannot place the finger in the external os and long and somewhat firm. LABORATORY DATA: White count 11.7, hemoglobin 12.4, hematocrit 35.6, platelet count 269,000. Coags are normal. Chemistry shows normal values. Blood type, she is AB positive and antibody negative. Ultrasound as noted above. ASSESSMENT: This is a 3, para 2-0-0-2, with an intrauterine at 14 weeks with a fairly large subchorionic hematoma with a slight mass effect. She is hemodynamically stable. She is not actively bleeding currently and her cervix is closed. Certainly this is concerning for possible miscarriage, but right now we have a viable without appearance of inevitability. Therefore, she was given strict precautions for pelvic rest. She was advised not to do any strenuous activity but was not placed on bed rest and can work. She was advised that she is going to continue to bleed and if it is not any different from what she has experienced she can monitor; however, if it becomes heavier, if she starts to pass large clots (I advised her that she might notice some small pea or grape sized clots) but if she starts to notice larger clots than that she is to call and additionally if she starts to have pain or cramping , she should call, this would probably consistent with an inevitable loss. I advised the patient that I did know what the outcome of this was going to be and that certainly this large of a subchorionic hematoma is quite concerning but at this point in time we have a viable . The patient was advised to call if she has any questions or concerns. She has a appointment already scheduled for next . The patient's questions to the best of my ability were answered and we will have close followup with her. Additionally, I noted that in this type of situation, later on in the , that she has increased risk of labor and rupture of membranes and that we would continue to follow her closely throughout. I did discuss with the patient about the possibility that something could happen quite fast and that she could potentially deliver at home, which is why I advised her to call if anything at all changes. This is a very desired for the patient. JOSLYN
== END 2017-07-06 17:00 | disposition home or self-care (01) ==
LOC: C.EDB 14:02
DX: Z34.81 Encounter for supervision of other normal pregnancy, first trimester (principal); O20.8 Other hemorrhage in early pregnancy

== ENCOUNTER → 2017-10-13 | Outpatient (CLI) | payer BC ==
[~2017-10-13] MED LIST changes: -BCPILLS PO
[2017-10-13 17:42] LABS: HEMATOCRIT 35.8 % (37-47); HEMOGLOBIN 11.9 g/dL (12.0-16.0)
== END | disposition home or self-care (01) ==
LOC: C.LAB1850 16:41
PROVIDERS: ATTEND Obstetrics & Gynecology
DX: Z34.83 Encounter for supervision of other normal pregnancy, third trimester (principal); Z3A.00 Weeks of gestation of pregnancy not specified